=== PATIENT | male | born 1945 | race Caucasian/White ===

== ENCOUNTER 2018-04-15 17:56 | Emergency (ER) | payer MEDICARE | END 2018-04-15 21:10 | disposition home or self-care (01) | LOC: E/R 17:56 | DX: Z48.01 Encounter for change or removal of surgical wound dressing (principal); I10 Essential (primary) hypertension; G93.89 Other specified disorders of brain; Z79.82 Long term (current) use of aspirin | CPT/HCPCS: 70450; 99284-25 ==